=== PATIENT | female | born 1955 | race Caucasian/White ===

== ENCOUNTER → 2018-01-11 | Outpatient (CLI) | payer OTHER ==
--- NOTE | 2018-01-11 10:56 | Diagnostic Imaging Report ---
PROCEDURE: CT CHEST WITHOUT CONTRAST CT scan of the chest WITHOUT intravenous contrast, using standard protocol. TECHNIQUE: The chest was scanned utilizing a multidetector helical scanner from the apex to the level of the adrenal glands. No IV contrast was administered as per physician request. Coronal and sagittal multiplanar reformations were obtained. COMPARISON: None. INDICATIONS: NODULE FINDINGS: Lines/tubes: None. Lungs and Airways: Several punctate pulmonary nodules are present in the left lower lobe, series 3 image 51. No focal consolidation or parenchymal mass. Pleura: The pleural spaces are clear. Heart and mediastinum: The thyroid gland is normal. No significant mediastinal, hilar or axillary lymphadenopathy is seen. The heart and pericardium are within normal limits. Soft tissues: Normal. Abdomen: Limited views of the upper abdomen show no abnormality within the visualized liver, spleen, pancreas, or kidneys. The adrenal glands are normal. Cholecystectomy clips. Bones: The visualized bony thorax is within normal limits. IMPRESSION: Nonspecific punctate nodules in the left lower lobe. Otherwise, no acute abnormality the chest. Dictated by: Vinny Yip M.D. on 01/11/2018 at 10:57 Electronically approved by: Vinny Yip M.D. on 01/11/2018 at 10:57
== END ==
LOC: CT 08:53
PROVIDERS: ATTEND Internal Medicine Critical Care Medicine
DX: R91.1 Solitary pulmonary nodule (principal)
CPT/HCPCS: 71250

== ENCOUNTER → 2020-07-19 | Outpatient (CLI) | payer BC | LOC: MAMMO 08:03 | PROVIDERS: ATTEND Internal Medicine | DX: Z12.31 Encounter for screening mammogram for malignant neoplasm of breast (principal) | CPT/HCPCS: 77067 ==